=== PATIENT | female | born 1990 | race African-American/Black ===

== ENCOUNTER 2017-01-26 06:08 | Inpatient (IN) ==
[2017-01-26] MEDS: LACTATED RINGERS 1,000 ML IV SCH ×2 (07:05→09:30)
[2017-01-26] MEDS ORDERED: BUTORPHANOL 2 MG/ML VIAL IV PRN (07:26)
[2017-01-26] MEDS ORDERED: MEPERIDINE 50 MG/1 ML VIAL IV PRN (07:26)
[2017-01-26] MEDS ORDERED: ONDANSETRON 4 MG/2 ML VIAL IV PRN (07:26)
[2017-01-26] MEDS ORDERED: OXYTOCIN/LR 20 UNIT/1,000 ML BAG IV SCH (07:30)
[2017-01-26 08:08] LABS: Basophils % 0.4 % (0.0-0.8); Eosinophils # 0.1 10*3/uL (0.0-0.87); Eosinophils % 1.6 % (0.00-10.9); Hematocrit 31.2 VOL% (35.7-47.0); Hemoglobin 10.3 GM/DL (12.0-16.0); Immature Granulocytes % 0.8 %; Immature Granulocytes Absolute 0.06 #; Lymphocytes # 1.2 10*3/uL (1.4-4.0); Lymphocytes % 15.7 % (21.3-54.2); Mean Corpuscular Hemoglobin 25 PG (27-34); Mean Corpuscular Volume 76.7 FL (87-102); Monocytes # 0.7 10*3/uL (0.11-0.8); Monocytes % 8.4 % (1.7-12.7); Neutrophils # 5.8 10*3/uL (1.4-7.4); Neutrophils % 73.1 % (38.7-73.9); Platelet Count 262 T/CUMM (130-400); Red Blood Count 4.07 MC/CUMM (3.8-5.5); Red Cell Distribution Width 13.5 % (9.3-17.3); White Blood Count 7.9 T/CUMM (4-12)
[2017-01-26 08:18] LABS: INR 0.9; PT Patient Result 9.8 SECS; Partial Thromboplastin Time 28.3 SECS (0-40)
[2017-01-26 08:53] LABS: Albumin 2.9 G/DL (3.4-5.0); Bilirubin,Total 0.5 MG/DL (0.2-1.0); Calcium 9.1 MG/DL (8.5-10.1); Osmolality,Calculated 276.3 MOS/KG (273-304); Total Protein 6.3 G/DL (6.4-8.3); Uric Acid 5.4 MG/DL (2.6-6.0)
[2017-01-26] MEDS ORDERED: fentaNYL 2 MCG/ROPIV 0.2% EPID 150 ML EPIDURAL SCH (09:05)
[2017-01-26] MEDS ORDERED: PROMETHAZINE 25 MG/1 ML VIAL IM ONE (09:05)
[2017-01-26] MEDS ORDERED: diphenhydrAMINE 50 MG/1 ML VIAL IV PRN (09:05)
[2017-01-26] MEDS ORDERED: FAMOTIDINE 20 MG/2 ML VIAL IV ONE (09:05)
[2017-01-26] MEDS ORDERED: CITRIC ACID/SODIUM CITRATE 30 ML UDCUP PO ONE (09:05)
[2017-01-26] MEDS ORDERED: ePHEDrine 50 MG/ML AMP ONE (09:22)
--- NOTE | 2017-01-26 09:29 | OB/GYN History & Physical ---
History of Present Illness Chief complaint: In for elective induction of labor due to term History of present illness: Ms. Eugene is a 26 year old female who is a 3 para 2 living 2. Her KATALINA is 02/02/2016 for an estimated gestational age of 39 weeks. The patient presents for elective induction of labor due to term . The risks and benefits of been thoroughly discussed with the patient and significant other, plan of care has been discussed with Dr. Coronado in all parties are in agreement with plan. Her care at the [facility] and she received routine care, her course was uneventful. labs: She is O+, RPR is nonreactive, hepatitis B is negative, HIV is negative, rubella is immune , GBS cultures negative. Review of systems is negative with exception of above. The patient has had 2 previous vaginal deliveries the largest weighing 7 pounds and 5 ounces and she reported no complications with either . Home Medications Medication Instructions Recorded Confirmed Type Vit No.130/Iron/FA 1 each PO DAILY 12/12/16 01/26/17 History [ Vitamins] Ondansetron Tab [Zofran Tab] 4 mg PO Q8H PRN 01/26/17 01/26/17 History Allergies Allergy/AdvReac Type Severity Reaction Status Date / Time No Known Allergies Allergy Verified 12/12/16 10:59 12 point system: reviewed and no additional remarkable complaints except as stated Medical,Surgical,& Family Hx - Medical History Medical History: noncontributory - Surgical History Surgical History: noncontributory - Family History Family History: noncontributory - Social History Smoking Status: Former smoker Have you smoked in the last 12 months: No Frequency of Alcohol Use: None Type of Drug Use: None Marital Status: Single Lives With:: Significant Other Functional capacity: independent ambulation 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 - Constitutional Vitals: Vital Signs Temp Pulse Resp BP 01/26/17 07:29 97.6 F 107 H 20 119/73 General appearance: mild distress - Antepartum / Post Antpartum Exam Cervix -Dilatation: 4 cm Effacement: 70% Station: -1 Rupture: SROM with Meconium stained fluid Presentation: VTX Heart Rate: 140s Breast: bilateral: normal Abdomen obstetrics: Present: bowel sounds normal Vagina: Present: normal moisture Uterus exam: Present: enlarged - Respiratory Respiratory exam: Present: clear to auscultation bilaterally - Cardiovascular Cardiovascular exam: Present: regular rate and rhythm - GI/Abdominal GI/Abdominal exam: Present: normal bowel sounds, soft - Extremities Exam Extremities exam: Present: normal inspection - Neurological Exam Neurological exam: Present: alert, oriented X3 - Psychiatric Psychiatric exam: Present: normal affect, normal mood - Skin Skin exam: Present: normal color, warm Assessment and Plan (1) Term Status: Acute Assessment and plan: Admit IV fluids IV Pitocin per protocol IUPC Epidural Anticipate Current Visit: Yes Results - Labs CBC & BMP: 01/26/17 07:37 01/26/17 07:37 Quality Measures - VTE Contraindication to Pharmacological VTE Prophylaxis: Clinical assessment deems Pt at low risk, no prophalaxis needed
--- NOTE | 2017-01-26 11:15 | Event Note ---
HPI: Ms. Eugene is a 26-year-old female who presented for induction of labor due to term . The risks and benefits were thoroughly discussed with the patient and significant other, plan care was discussed with Dr. Coronado in all parties were in agreement with plan. Stage I: The patient was admitted she received IV fluids and IV Pitocin per protocol. She experience spontaneous rupture membranes with meconium fluid noted. An IUPC was inserted. The patient received IV pain meds for pain control at and when she was a centimeters dilated she received a labor spinal. She maintain a CAT 1 tracing for most of her course of labor, however, toward the end she started to experience a CAT 2 tracing. The patient was administered oxygen and position change was performed. Stage II: The patient was complete and instructed to push. She pushed for approximately 30 minutes after which time a second-degree midline episiotomy was performed. The 's head was then delivered. The mouth and nose suctioned on the perineum. A nuchal cord was noted and reduced. The remainder of the infant was delivered at 1057, a viable female was noted. Apgars were 8 at 1 minute and 9 at 5 minutes. weight was 6 pounds and 14 ounces. A cord pH was obtained sent to the lab. Stage III: Spontaneous delivery of a [place] placenta with a three-vessel cord noted. The placenta was further examined. Grossly intact with exception meconium stained. The vagina and cervix was inspected with no additional tears or lacerations noted. The episiotomy was repaired in the usual fashion. Spinal anesthetic remained within normal repair. Estimated blood loss was 150 mL. The time of dictation mother and baby are both in stable condition.
[2017-01-26] MEDS ORDERED: OXYTOCIN/LR 20 UNIT/1,000 ML BAG IV ONE (11:16)
[2017-01-26] MEDS ORDERED: ACETAMINOPHEN 325 MG TABLET PO PRN (11:16)
[2017-01-26] MEDS ORDERED: LANOLIN 50% CREAM 0.3 OZ TUBE TOP PRN (11:16)
[2017-01-26] MEDS ORDERED: oxyCODONE/ACETAMINOPHEN 5-325 MG TABLET PO PRN ×2 (11:16)
[2017-01-26] MEDS ORDERED: WITCH HAZEL PADS 100/JAR TOP PRN (11:16)
[2017-01-26] MEDS ORDERED: IBUPROFEN 800 MG TABLET PO PRN (11:16)
[2017-01-26] MEDS ORDERED: RHO(D) IMMUNE GLOBULIN 300 MCG SYRINGE IM ONE (11:16)
[2017-01-26] MEDS ORDERED: DIPH/TET/ACEL PERT BOOSTER VACCINE 0.5 ML VIAL IM ONE (11:16)
[2017-01-26] MEDS ORDERED: BISACODYL 10 MG SUPP RECTAL PRN (11:16)
[2017-01-26] MEDS ORDERED: HYDROCORTISONE 2.5% RECTAL CREAM 30 GM TUBE TOP PRN (11:16)
[2017-01-26] MEDS ORDERED: MEASLES/MUMPS/RUBELLA VACCINE 0.5 ML VIAL SUBCUT ONE (11:16)
[2017-01-26] MEDS ORDERED: BENZOCAINE 20%/MENTHOL 0.5% SPRAY 56 GM CAN TOP PRN (11:16)
[2017-01-26] MEDS ORDERED: ACETAMINOPHEN/CODEINE 300-30 MG TABLET PO PRN (15:41)
[2017-01-26] MEDS: DOCUSATE SODIUM 100 MG CAPSULE PO SCH (21:23)
[2017-01-27 06:43] LABS: Basophils % 0.2 % (0.0-0.8); Eosinophils # 0.1 10*3/uL (0.0-0.87); Eosinophils % 0.9 % (0.00-10.9); Hematocrit 28.3 VOL% (35.7-47.0); Hemoglobin 9.4 GM/DL (12.0-16.0); Immature Granulocytes % 0.8 %; Lymphocytes # 1.8 10*3/uL (1.4-4.0); Lymphocytes % 14.7 % (21.3-54.2); Mean Corpuscular HGB Conc 33.2 GM/DL (32-36); Mean Corpuscular Hemoglobin 25 PG (27-34); Mean Corpuscular Volume 76.1 FL (87-102); Monocytes # 0.8 10*3/uL (0.11-0.8); Monocytes % 6.8 % (1.7-12.7); Neutrophils # 9.3 10*3/uL (1.4-7.4); Neutrophils % 76.6 % (38.7-73.9); Platelet Count 239 T/CUMM (130-400); Red Blood Count 3.72 MC/CUMM (3.8-5.5); Red Cell Distribution Width 13.6 % (9.3-17.3); White Blood Count 12.2 T/CUMM (4-12)
[2017-01-27] MEDS: DOCUSATE SODIUM 100 MG CAPSULE PO SCH ×2 (09:16→22:15)
[2017-01-27] MEDS: FERROUS SULFATE 325 MG TABLET PO SCH ×2 (09:28→22:15)
--- NOTE | 2017-01-27 09:30 | Progress Note ---
Family Medicine PN Sub Interval history: day #1 Status post vaginal Lungs are clear, cardiac exam benign, abdomen soft uterus is firm. Extremities a well within normal limits and neurologically grossly intact Status post vaginal Possible discharge in a.m. Exam (Progress Note) - Constitutional Vitals: Period Temp Pulse Resp BP Sys/Oliveros Pulse Ox Last 24 Hr 97.5 F-98.8 F 53-82 18-20 115-152/62-82 97-99 Results - Labs CBC & BMP: 01/27/17 06:13 01/26/17 07:37 Quality Measures - VTE Contraindication to Pharmacological VTE Prophylaxis: Clinical assessment deems Pt at low risk, no prophalaxis needed
[2017-01-28] MEDS: DOCUSATE SODIUM 100 MG CAPSULE PO SCH (09:06)
[2017-01-28] MEDS: FERROUS SULFATE 325 MG TABLET PO SCH (09:06)
--- NOTE | 2017-01-28 09:39 | Discharge Summary ---
Hospital Course - Hospital Course Hospital Course: Ms. Eugene is a 26-year-old female who presented to the labor department for elective induction of labor due to term . The patient subsequently delivered a viable with no complications. She has followed a normal course and she is doing well. Her bleeding is minimal no odor. Her vital signs are stable. Her lab values are stable. She denies any pain in her legs. She is bonding well with her . Her pain level is minimal. She will be discharged to home will prescriptions for pain and a follow-up appointment in our office. Diagnosis - Discharge Diagnosis (1) Term Status: Acute Specialty Discharge - Follow Up or Referrals Follow up with: Violeta Coronado MD [Physician] - (follow up in 6 weeks) Discharge Plan - Discharge Data Disposition: Disch To Home/Self Care Condition at Discharge: Stable Discharge Diet: advance to your usual diet, regular diet Activity: resume usual activities as tolerated Hygiene: may shower Weight Bearing at Discharge: weight bear as tolerated Driving: no restrictions Contact your physician if you experience:: fever over 101, pain uncontrolled by pain medications - Discharge Medications New Acetamin/Codeine 300-30 Tab [Tylenol/Codeine #3] 2 tablet PO Q6H PRN #60 tablet PRN Reason: Pain Mild (1-3) Ibuprofen Tab [Motrin Tab] 800 mg PO Q6H PRN #30 tablet PRN Reason: Pain Moderate (4-7) Ferrous Sulfate Tab [Feosol Original Tab] 325 mg PO BID #60 tablet No Action Vit No.130/Iron/FA [ Vitamins] 1 each PO DAILY Ondansetron Tab [Zofran Tab] 4 mg PO Q8H PRN PRN Reason: Nausea - Follow Up or Referral Follow Up: Violeta Coronado MD [Physician] - - Forms/Instructions Instructions: Perineal Care (DC), Vaginal Delivery (DC), Bleeding (DC) Exam - Constitutional Vitals: Period Temp Pulse Resp BP Sys/Oliveros Pulse Ox Last 24 Hr 96.7 F-98.2 F 63-100 16-20 124-139/74-92 97-100 General appearance: normal weight, no acute distress - Respiratory Respiratory exam: Present: clear to auscultation bilaterally - Cardiovascular Cardiovascular exam: Present: regular rate and rhythm - GI/Abdominal GI/Abdominal exam: Present: normal bowel sounds, soft - Extremities Exam Extremities exam: Present: normal inspection - Neurological Exam Neurological exam: Present: alert, oriented X3 - Psychiatric Psychiatric exam: Present: normal affect, normal mood - Skin Skin exam: Present: normal color, warm Discharge Results Procedures and tests throughout hospitalization: Pending Orders 01/26/17 07:26 Urinalysis Routine DS: Provider Date of admission: 01/26/17 06:09 Primary care physician: Melissa Mchugh Attending physician on admission: Violeta Coronado MD Consults: 01/26/17 07:26 Consult to Anesthesiology [CONS] Routine Consulting Provider: Reason for Anesthesiology: Epidural Consult Comment: Epidural for pain managment 01/26/17 11:17 Consult to Hse Coordinator [CONS] Routine Consult Hse Coordinator: Breast Feeding Discharging clinician: Cori Muller CNM Expected date of discharge: 01/28/17
[2017-01-28 10:15] VITALS: BP 125/64
--- NOTE | 2017-01-30 12:30 | Pathology Report from [facility] ---
ACCESSION # : [id number] PATIENT NAME : Marisabel Eugene ORDERING DR : ZEINAB RENDON MD CLINICAL HX: IUP 39 weeks term placenta, meconium POST-OP DX: Same SPECIMEN INFO: Placenta GROSS DESCRIPTION: The specimen is received fresh labeled with the patient's name Marisabel Eugene and "PLACENTA" consists of a475 gram placenta measuring 17.0 x 16.0 x 2.8 cm. The membranes are pink berumen and translucent with meconium staining noted. The umbilical cord measures 20.5 cm, and is markedly edematous, the cord contains three vessels and is eccentrically inserted. The surface is blue roberts and intact with a few small areas of subchorionic fibrin noted. The maternal surface is intact with calcifications seen. Sections submitted A- membranes and cord, B- and maternal surfaces. DIAGNOSIS FOR MARISABEL EUGENE: PLACENTA, MEMBRANES, UMBILICAL CORD: Focal placental infarction with dystrophic calcification, mild intervillous blood, fibrin clot. Tri-vessel umbilical cord, eccentrically inserted. Membranes with focal chronic inflammation, detached blood, meconium staining. SERVICE DATE: 01/26/2017 REPORT DATE: 01/27/2017 PATHOLOGIST: Fabricio Mart
== END 2017-01-28 12:00 | disposition home or self-care (01) | DRG 775 ==
LOC: N.LDOUT 06:08 → N.LD 06:09 → N.OB 15:29
PROVIDERS: ADMIT Obstetrics & Gynecology; ATTEND Obstetrics & Gynecology